=== PATIENT | male | born 2000 | race Caucasian/White ===

== ENCOUNTER 2021-02-27 22:17 | Emergency (ER) | payer MEDICAID, OTHER ==
[2021-02-27 22:44] VITALS: TEMP 98
[2021-02-27] MEDS ORDERED: DIPH,PERTUS(ACELL)TETVAC-LF 0.5 ML VIAL IM ONE (23:13)
[2021-02-27] MEDS ORDERED: LIDOCAINE 1%-EPI 1:100,000 20 ML VIAL SQ STA (23:13)
--- NOTE | 2021-02-27 23:45 | XR ---
EXAMINATION TYPE: XR forearm LT DATE OF EXAM: 02/27/2021 COMPARISON: 08/18/2012 HISTORY: Pain TECHNIQUE: 2 views FINDINGS: I see no fracture nor dislocation. Elbow joint and wrist joint appear intact. There is some soft tissue deformity of the distal forearm. IMPRESSION: There is some soft tissue deformity that could relate to bruising or laceration. No fract ure seen. No sign of a foreign body.
[2021-02-28] MEDS ORDERED: BACITRACIN OINT 1 EACH PACKET TOPICAL STA (00:47)
--- NOTE | 2021-02-28 00:48 | ED ---
General Adult HPI - General Chief complaint: Wound/Laceration Stated complaint: L arm laceration Time Seen by Provider: 02/27/21 23:01 Source: patient Mode of arrival: ambulatory Limitations: no limitations - History of Present Illness Initial comments: 21-year-old male without any significant past medical history presents to the emergency room for a complaining of laceration to the left forearm. Patient states she was reaching inside of his car working on it. States his arm got stuck between the belt in the nicole and he had to pull out his arm. States it caused a laceration. Patient denies any difficulty moving his fingers. Denies any numbness or tingling in the left hand.Patient has no other complaints at this time including shortness of breath, chest pain, abdominal pain, nausea or vomiting, headache, or visual changes. - Related Data Previous Rx's Medication Instructions Recorded Ibuprofen [Motrin] 600 mg PO Q8HR PRN #20 tab 07/27/15 Cephalexin [Keflex] 500 mg PO Q6HR 5 Days #20 cap 02/28/21 Allergies Allergy/AdvReac Type Severity Reaction Status Date / Time loratadine [From [facility] [place]] Allergy Rash/Hives Verified 02/27/21 22:44 Review of Systems ROS Statement: Those systems with pertinent positive or pertinent negative responses have been documented in the HPI. ROS Other: All systems not noted in ROS Statement are negative. Past Medical History Past Medical History: No Reported History History of Any Multi-Drug Resistant Organisms: None Reported Past Surgical History: Adenoidectomy, Tonsillectomy Past Psychological History: No Psychological Hx Reported Smoking Status: Current every day smoker Past Alcohol Use History: Occasional Past Drug Use History: Marijuana General Exam Limitations: no limitations General appearance: alert, in no apparent distress Head exam: Present: atraumatic, normocephalic, normal inspection Eye exam: Present: normal appearance, PERRL, EOMI. Absent: scleral icterus, conjunctival injection, periorbital swelling ENT exam: Present: normal exam, mucous membranes moist Neck exam: Present: normal inspection. Absent: tenderness, meningismus, lymphadenopathy Respiratory exam: Present: normal lung sounds bilaterally. Absent: respiratory distress, wheezes, rales, rhonchi, stridor Cardiovascular Exam: Present: regular rate, normal rhythm, normal heart sounds. Absent: systolic murmur, diastolic murmur, rubs, gallop, clicks Extremities exam: Present: full ROM (Full range motion of all fingers of the left hand as well as the left wrist.), normal capillary refill (Capillary refill less than 2 seconds, radial pulse 2+ in the left upper extremity. Sensation intact), other (8 cm longitudinal laceration of the left volar forearm. I do not see any deep structure involvement. No obvious foreign bodies.) Course Vital Signs 02/27/21 22:41 Temperature 98.0 F Pulse Rate 83 Respiratory 18 Rate Blood Pressure 142/95 O2 Sat by Pulse 98 Oximetry Procedures - Laceration Laceration #1 Consent Obtained: verbal consent Indication: laceration Site: upper extremity Size (cm): 8 Description: linear Depth: simple, single layer Anesthetic Used: lidocaine 1%, with epi Anesthesia Technique: local infiltration Amount (mls): 6 Pre-repair: wound explored, irrigated extensively (With saline pressure irrigation), deep structures intact Type of Sutures: nylon Size of Sutures: 4-0 Number of Sutures: 12 Technique: simple, interrupted Patient Tolerated Procedure: well, no complications Medical Decision Making - Medical Decision Making Vitals are stable. HPI and physical exam as documented. No obvious tendon injury. Full range of motion of all digits and left hand. Bleeding controlled upon arrival although there is slight oozing present. X-ray was obtained which showed some soft tissue deformity that could relate to bruising or laceration. No fracture seen. No sign of a foreign body. This is clinically correlated with laceration. 12 sutures were applied after thoroughly cleaning wound and inspecting performed bodies which none were found. Patient was started on antibiotics prophylactically given signs of wound. Patient was updated on tetanus. Patient will return in 7-10 days for suture removal. Discussed care parameters and return precautions. Disposition Clinical Impression: Laceration Disposition: HOME SELF-CARE Condition: Good Instructions (If sedation given, give patient instructions): Care For Your Stitches (ED), Laceration (ED) Additional Instructions: Keep the area clean with gentle soap and water. Apply antibiotic ointment. Take antibiotic as directed to prevent infection. Monitor for signs infection such as spreading or streaking redness, drainage, or fever and return if these occur. Return in 7-10 days for suture removal. Prescriptions: Cephalexin [Keflex] 500 mg PO Q6HR 5 Days #20 cap Is patient prescribed a controlled substance at d/c from ED?: No Referrals: Francesca Wray MD [REFERRING] - 1-2 days Time of Disposition: 00:47
[2021-02-28 00:59] VITALS: BP 128/77; PULSE 78; RESP 16
== END 2021-02-28 00:58 | disposition home or self-care (01) ==
LOC: EC 22:17
DX: S51.812A Laceration without foreign body of left forearm, initial encounter (principal); F17.200 Nicotine dependence, unspecified, uncomplicated; F12.90 Cannabis use, unspecified, uncomplicated; Z23 Encounter for immunization; W23.1XXA Caught, crushed, jammed, or pinched between stationary objects, initial encounter
CPT/HCPCS: 12004; 90471; 90715; 99283

== ENCOUNTER 2025-01-21 20:43 | Emergency (ER) | payer OTHER ==
[2025-01-21 23:18] LABS: Amphetamine Screen,Urine Not Detected (NotDetected); Barbiturate Screen,Urine Not Detected (NotDetected); Benzodiazepines Screen,Urine Not Detected (NotDetected); Cocaine Screen,Urine Not Detected (NotDetected); Methadone Screen, Urine Not Detected (NotDetected); Opiate Screen,Urine Not Detected (NotDetected); Oxycodone Screen, Urine Not Detected (NotDetected); Phencyclidine Screen,Urine Not Detected (NotDetected); Tricyclic Antidepressant,Urine Not Detected (NotDetected); Urn Cannabinoid Scrn Detected (NotDetected)
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
[2025-01-22 04:34] VITALS: BP 117/80; PULSE 98; RESP 18; TEMP 98.6
== END 2025-01-22 04:35 | disposition home or self-care (01) ==
LOC: EC 20:43
DX: F32.A Depression, unspecified (principal); F39 Unspecified mood [affective] disorder; F10.129 Alcohol abuse with intoxication, unspecified; F17.200 Nicotine dependence, unspecified, uncomplicated; Z88.8 Allergy status to other drugs, medicaments and biological substances
CPT/HCPCS: 80306; 82075; 99285